=== PATIENT | female | born 1965 | race African-American/Black ===

== ENCOUNTER 2017-06-26 20:03 | Emergency (ER) | payer OTHER ==
[2017-06-26] MEDS ORDERED: SODIUM CHLORIDE 1,000 ML IV STA (20:17)
[2017-06-26] MEDS ORDERED: DEXAMETHASONE SOD PHOSPHATE 20 MG/5 ML VIAL IVPB ONE (20:18)
[2017-06-26] MEDS ORDERED: METOCLOPRAMIDE HCL INJECTION 10 MG/2 ML VIAL IVPUSH ONE (20:18)
--- NOTE | 2017-06-26 20:22 | PDOC ---
Attending Attestation - Resident Resident Name: Tommie Rasheed - ED Attending Attestation I have performed the following: I have examined & evaluated the patient, The case was reviewed & discussed with the resident, I agree w/resident's findings & plan - HPI HPI: 06/26/17 20:26 Pt comes with migraine headache and nausea. States that she was recently restarted on tamoxifen. - Physicial Exam PE: 06/26/17 20:27 Agree with resident exam. - Medical Decision Making 06/26/17 22:11 Pt comes with a migraine that began today as she was taking the bus to work. She stopped and took 2 tylenol, and states that she began to feels nauseous and headache. Pt states that her oncologist at [facility] started her on tamoxifen 2 days ago, She is in the middle of her menstrual cycle and attributes the nausea to the menses and tamoxifen. Headache is her usual mograine. In the ER pt appears well, she is feeling 100% improved. No HERNANDEZ here. SHe has no fever or chills or findings on exam. Pt has low K+ and she will be repleted with K+ and Mg+ and she will follow with her PMD and her oncologist.
[2017-06-26 20:24] VITALS: BP 141/91; PULSE 62; TEMP 97.1; BMI 29.2
--- NOTE | 2017-06-26 20:27 | PDOC ---
History of Present Illness - General Chief Complaint: Headache Stated Complaint: HEADACHE Time Seen by Provider: 06/26/17 20:10 History Source: Patient Exam Limitations: No Limitations - History of Present Illness Initial Comments: 06/26/17 20:22 Patient is a 51F with history of breast cancer, htn and migraines here today complaining of headache of insidious onset 3 hours before presentation. Patient describes a slowly building headache on the right side of her head with associated nausea, light and sound sensitivity. Denies neck pain, focal weakness , and vomiting. Patient states that she was recently started on tamoxifen due to an abnormality found in left breast. Denies fevers, chills. Past History - Past Medical History Allergies/Adverse Reactions: Allergies Allergy/AdvReac Type Severity Reaction Status Date / Time No Known Allergies Allergy Verified 06/26/17 20:24 Home Medications: Ambulatory Orders Hydrochlorothiazide [Hctz -] 25 mg PO DAILY 06/26/17 Cancer: Yes (R BREAST CA --LUMPECTOMY) HTN: Yes - Suicide/Smoking/Psychosocial Hx Smoking Status: No Smoking History: Never smoked Number of Cigarettes Smoked Daily: 0 Hx Alcohol Use: No Drug/Substance Use Hx: No Review of Systems - Review of Systems Comments:: 06/26/17 20:24 GENERAL/CONSTITUTIONAL: No fever or chills. No weakness. HEAD, EYES, EARS, NOSE AND THROAT: No change in vision. No sore throat. CARDIOVASCULAR: No chest pain or shortness of breath RESPIRATORY: No cough, wheezing, or hemoptysis. GASTROINTESTINAL: No nausea, vomiting, diarrhea or constipation. GENITOURINARY: No dysuria, frequency, or change in urination. MUSCULOSKELETAL: No joint or muscle swelling or pain. No neck or back pain. SKIN: No rash NEUROLOGIC: Positive for headache. Negative for vertigo, loss of consciousness, or change in strength/sensation. HEMATOLOGIC/LYMPHATIC: No anemia, easy bleeding, or history of blood clots. ALLERGIC/IMMUNOLOGIC: No hives or skin allergy. *Physical Exam - Physical Exam Comments: 06/26/17 20:25 GENERAL: Awake, alert, and fully oriented, asking for lights to be off HEAD: No signs of trauma, normocephalic, atraumatic EYES: PERRLA, EOMI, sclera anicteric, conjunctiva clear ENT: Auricles normal inspection, hearing grossly normal, nares patent, oropharynx clear without exudates. Moist mucosa NECK: Normal ROM, supple, no lymphadenopathy, JVD, or masses LUNGS: No distress, speaks full sentences, clear to auscultation bilaterally HEART: Regular rate and rhythm, normal S1 and S2, no murmurs, rubs or gallops, peripheral pulses normal and equal bilaterally. ABDOMEN: Soft, nontender, normoactive bowel sounds. No guarding, no rebound. No masses NEUROLOGICAL: Cranial nerves II through XII grossly intact. Normal speech, no focal sensorimotor deficits SKIN: Warm, Dry, normal turgor, no rashes or lesions noted. ED Treatment Course - LABORATORY CBC & Chemistry Diagram: 06/26/17 20:35 06/26/17 20:35 - RADIOLOGY Radiology Studies Ordered: Category Date Time Status HEAD CT WITHOUT CONTRAST [CT] Stat CT Scan 06/26/17 20:18 Ordered Medical Decision Making - Medical Decision Making 06/26/17 20:25 Patient is 51F with history of migraine, htn, and breast cancer here today with headache. Vital signs stable. DDx heavily weighted towards migraine, but will also perform head ct to evaluate for mets. Will treat with fluids, reglan, and dexamethasone. 06/26/17 21:44 CMP shows K of 2.7. Patient reports having low potassium chronically. Repleting K and Mg. Patient discussed CT scan further, does not want to do CT scan. Risks and benefits discussed with patient, who decided to follow up with her oncologist instead. EKG ordered due to low potassium. Will complete and then discharge. 06/26/17 22:56 EKG shows normal sinus rhythm with rate of 62. No st elevations/depressions. No u waves. Normal intervals. Will discharge with return precautions. Patient has PCP follow up. *DC/Admit/Observation/Transfer Diagnosis at time of Disposition: Migraine - Discharge Dispostion Disposition: HOME Condition at time of disposition: Good Decision to Admit order: No - Referrals - Patient Instructions Printed Discharge Instructions: DI for Migraine Additional Instructions: Please return if you have any new, worsening or concerning symptoms. Please follow up with your primary care physician this week. - Post Discharge Activity Forms/Work/School Notes: Back to Work
[2017-06-26] MEDS ORDERED: METOCLOPRAMIDE HCL INJECTION 10 MG/2 ML VIAL ONE (20:39)
[2017-06-26] MEDS ORDERED: DEXAMETHASONE SOD PHOSPHATE 4 MG/1 ML VIAL ONE (20:39)
[2017-06-26 20:41] LABS: HEMOGLOBIN 13.2 GM/dL (10.7-15.3); MCHC 34.7 g/dl (32.0-36.0); MEAN CELL VOLUME 89.3 fl (80-96); MEAN PLT VOLUME 11.3 fl (7.5-11.1); PLATELET COUNT 183 K/MM3 (134-434); RBC 4.26 M/mm3 (3.60-5.2); RDW 13.6 % (11.6-15.6); WHITE BLOOD COUNT 6.6 K/mm3 (4.0-10.0)
[2017-06-26 21:12] LABS: ANION GAP 12 (8-16); BLOOD UREA NITROGEN 8 mg/dL (7-18); CALCIUM 9.1 mg/dL (8.5-10.1); CHLORIDE 102 mmol/L (98-107); CO2 28 mmol/L (21-32); GLUCOSE,RANDOM 112 mg/dL (74-106); SODIUM 142 mmol/L (136-145)
[2017-06-26 21:13] LABS: CREATININE 0.7 mg/dL (0.55-1.02); SGOT/AST 24 U/L (15-37); SGPT/ALT 35 U/L (12-78)
[2017-06-26 21:15] LABS: ALK PHOS 57 U/L (45-117); BILIRUBIN,TOTAL 0.4 mg/dL (0.2-1.0); TOT PROT 7.5 g/dl (6.4-8.2)
[2017-06-26 21:17] LABS: POTASSIUM 2.7 mmol/L (3.5-5.1)
[2017-06-26] MEDS ORDERED: POTASSIUM CHLORIDE TABS 20 MEQ TABLET.ER (FP) PO ONE ×2 (21:35→21:37)
[2017-06-26] MEDS ORDERED: MAGNESIUM SULF 50% (8.12 MEQ/2 ML-1 GM VIAL) IVPB ONE (22:11)
[2017-06-26] MEDS ORDERED: MAGNESIUM SULF 50% (8.12 MEQ/2 ML-1 GM VIAL) ONE (22:18)
--- NOTE | 2017-06-27 09:17 | EKG ---
Test Reason : Blood Pressure : / mmHG Vent. Rate : 062 BPM Atrial Rate : 062 BPM P-R Int : 158 ms QRS Dur : 076 ms QT Int : 450 ms P-R-T Axes : 042 -06 005 degrees QTc Int : 456 ms NORMAL SINUS RHYTHM LOW VOLTAGE QRS CANNOT RULE OUT ANTERIOR INFARCT , AGE UNDETERMINED ABNORMAL ECG WHEN COMPARED WITH ECG OF 15-NOV-2011 10:25, NO SIGNIFICANT CHANGE WAS FOUND Confirmed by SIDDHARTH ARAIZA, CHRISTIANE ([id number]) on 06/27/2017 9:16:38 AM Referred By: Confirmed By:CHRISTIANE MESSINA MD
== END 2017-06-26 23:19 | disposition home or self-care (01) ==
LOC: JER 20:03
PROC: 3E0337Z Introduction of Electrolytic and Water Balance Substance into Peripheral Vein, Percutaneous Approach (ICD-10-PCS; principal; 2017-06-26)
PROC: 3E033NZ Introduction of Analgesics, Hypnotics, Sedatives into Peripheral Vein, Percutaneous Approach (ICD-10-PCS; 2017-06-26)
PROC: 3E033GC Introduction of Other Therapeutic Substance into Peripheral Vein, Percutaneous Approach (ICD-10-PCS; 2017-06-26)
PROC: 3E033GC Introduction of Other Therapeutic Substance into Peripheral Vein, Percutaneous Approach (ICD-10-PCS; 2017-06-26)
DX: G43.909 Migraine, unspecified, not intractable, without status migrainosus (principal); Z85.3 Personal history of malignant neoplasm of breast; E87.6 Hypokalemia
CPT/HCPCS: 36415; 80053; 85027; 93005; 93010; 99282-25; J7030